=== PATIENT | male | born 1995 | race Caucasian/White ===

== ENCOUNTER 2020-11-09 08:13 | Emergency (ER) | payer OTHER ==
--- NOTE | 2020-11-09 08:21 | ED Physician Documentation ---
PD HPI HEENT - Stated complaint Stated Complaint: LUMP BY EAR - History obtained from History obtained from: Patient - History of Present Illness Timing - onset: How many days ago (2-3) Timing - duration: Days (2-3) Timing - details: Gradual onset, Still present (increasing swelling right throat and right neck. Feverish today.) Location: Throat Worsens: Swalllowing Associated symptoms: Fever (today), Swollen nodes. No: Congestion, Rhinorrhea, Headache Similar symptoms before: Has not had sx before Recently seen: Clinic (had COVID 2nd vaccine a week ago and felt okay after it. He initially thought this might be effect of the vaccine, but more pain in throat locally.) Review of Systems Constitutional: reports: Fever Nose: denies: Rhinorrhea / runny nose, Congestion, Sinus pressure / pain Throat: reports: Sore throat, Swollen tonsils Respiratory: denies: Cough GI: denies: Nausea, Vomiting, Diarrhea Skin: denies: Rash Neurologic: denies: Headache PD PAST MEDICAL HISTORY - Past Medical History Past Medical History: No - Present Medications Home Medications: Ambulatory Orders Medication Instructions Recorded Confirmed cephALEXin [Keflex] 500 mg PO QID 7 Days #28 cap 11/09/20 dexAMETHasone [Decadron] 4 mg PO DAILY #5 tablet 11/09/20 diphenhydrAMINE ELIXIR [Benadryl 12.5 mg PO Q6H PRN #120 ml 11/09/20 Elixir] - Allergies Allergies/Adverse Reactions: Allergies Allergy/AdvReac Type Severity Reaction Status Date / Time No Known Drug Allergies Allergy Verified 11/09/20 08:25 PD ED PE NORMAL - Vitals Vital signs reviewed: Yes - General General: Alert and oriented X 3, Well developed/nourished, Other (uncomfortable with swallowing. ) - HEENT HEENT: Ears normal, Moist mucous membranes. No: Pharynx benign (left tonsil is okay. Right tonsil with some swelling and exudate. The peritonsillar area has swelling with slight deviation of right tonsil to midline. No obvious bulging in the soft tissue. ) - Neck Neck: Supple, no meningeal sign, Other (Right anterior adenopathy that is tender, about 2 cm size. Not fluctuant. ) - Cardiac Cardiac: No murmur. No: RRR (febrile and mild tachycardic. Does not look septic. ) - Respiratory Respiratory: Clear bilaterally - Abdomen Abdomen: Soft, Non tender - Derm Derm: Normal color, Warm and dry, No rash - Neuro Neuro: Alert and oriented X 3, No motor deficit, Normal speech (no distortion of phonation) Results - Vitals Vitals: Vital Signs - 24 hr 11/09/20 08:18 Temperature 38 C H Heart Rate 102 H Respiratory 18 Rate Blood Pressure 138/80 H O2 Saturation 96 Oxygen O2 Source Room air PD MEDICAL DECISION MAKING - ED course Complexity details: considered differential (peritonsillar swelling without much deviation nor bulging. Does not look like it needs I&D as yet, so should be treatable with abx/steroids. Normal voice but pain with swallowing. I think would be unrelated to COIVD vaccine from last week. ), d/w patient Departure - Departure Disposition: 01 Home, Self Care Clinical Impression: Anterior cervical adenopathy, Peritonsillar abscess determined by examination Condition: Stable Record reviewed to determine appropriate education?: Yes Instructions: ED Peritonsillar Infec Abx No I andD Follow-Up: [facility] [Provider Group] Prescriptions: diphenhydrAMINE ELIXIR [Benadryl Elixir] 12.5 mg PO Q6H PRN #120 ml PRN Reason: Pain dexAMETHasone [Decadron] 4 mg PO DAILY #5 tablet cephALEXin [Keflex] 500 mg PO QID 7 Days #28 cap Comments: Stay well-hydrated. Soft food to help with discomfort. You can use Benadryl liquid swallowed to help numb the throat a little bit. Add Tylenol or ibuprofen if needed for pains. Cephalexin antibiotic 4 times a day for the next week. Decadron steroid for inflammation daily for the next 5 days. I would anticipate improvement over the next day or 2 considerably and resolution by 3 to 5 days. Recheck if not improving in that timeframe and return to the ER if worsening. At this point the infection does not look big enough to need drainage and should improve with the above medicines. However sometimes it does accumulate fluid more and needs drainage at the tonsil area.
[2020-11-09 08:25] VITALS: BP 138/80
[2020-11-09] MEDS ORDERED: diphenhydrAMINE ELIXIR 25 MG/10 ML UDC PO STA (08:40)
[2020-11-09] MEDS ORDERED: CHERRY SYRUP 10 ML UDC PO ONE (08:40)
[2020-11-09] MEDS ORDERED: DEXAMETHASONE 10 MG/ML VIAL PO STA (08:40)
[2020-11-09] MEDS ORDERED: IBUPROFEN 600 MG TABLET PO STA (08:40)
[2020-11-09] MEDS ORDERED: cephALEXin 250 MG CAPSULE PO STA (08:40)
[2020-11-09 09:29] LABS: RAPID STREP SCREEN Negative (Negative)
== END 2020-11-09 09:31 | disposition home or self-care (01) ==
LOC: ED 08:13
DX: J36 Peritonsillar abscess (principal); R59.9 Enlarged lymph nodes, unspecified
CPT/HCPCS: 87070; 87430; 99283; 99284; A9270

== ENCOUNTER 2020-11-11 20:02 | Emergency (ER) | payer OTHER ==
[2020-11-11 20:25] LABS: RAPID STREP SCREEN Negative (Negative)
[2020-11-11] MEDS ORDERED: SODIUM CHLORIDE 0.9% 1,000 ML IV STA ×2 (20:43)
[2020-11-11 20:46] LABS: BASOPHILS % (AUTO) 0.7 %; HCT - HEMATOCRIT 44.4 % (42.0-52.0); HGB - HEMOGLOBIN 14.8 g/dL (14.0-18.0); LYMPHOCYTES % (AUTO) 54.6 %; MEAN CORPUSCULAR HEMOGLOBIN 31.3 pg (27.0-31.0); MEAN CORPUSCULAR HGB CONC 33.3 g/dL (32.0-36.0); MEAN CORPUSCULAR VOLUME 93.9 fL (80.0-94.0); MEAN PLATELET VOLUME 9.4 fL (7.4-11.4); MONOCYTES % (AUTO) 17.9 %; NEUTROPHILS % (AUTO) 25.9 %; PLT - PLATELET COUNT 185 10^3/uL (130-450); RED BLOOD COUNT 4.73 10^6/uL (4.70-6.10); RED CELL DISTRIBUTION WIDTH 12.6 % (12.0-15.0)
[2020-11-11] MEDS ORDERED: AMPICILLIN/SULBACTAM 3 GM in SODIUM CHLORIDE 0.9% MINIBAG 100 ML IV STA (20:47)
[2020-11-11] MEDS ORDERED: IOVERSOL 320 100 ML VIAL IVP ONE ×2 (20:50→21:44)
[2020-11-11 20:51] LABS: SLIDE REVIEW? Indicated
[2020-11-11 20:52] LABS: ABNORMAL LYMPHS % (MANUAL) 0 %; BAND NEUTROPHILS % (MANUAL) 0 %
--- NOTE | 2020-11-11 20:52 | ED Physician Documentation ---
History of Present Illness - Stated complaint Stated Complaint: SORE THROAT - Chief complaint Chief Complaint: Heent - Additonal information Additional information: 25-year-old male presents to the emergency department for evaluation of worse alma sore throat fevers and increased pain and difficulty swallowing. Patient was seen here 2 days ago by my colleague and there were concerns for early peritonsillar abscess on the right side. He was started on cephalexin which she has filled but since discharge has had increased pain and some now mild dysphonia. He presents febrile with temperature 38 3 and tachycardic with a heart rate of 120. He is supporting his own airway and is tolerating his own secretions with an intact swallow. Review of Systems Constitutional: reports: Fever Eyes: reports: Reviewed and negative Ears: reports: Reviewed and negative Nose: reports: Reviewed and negative Throat: reports: Sore throat Cardiac: reports: Reviewed and negative Respiratory: reports: Reviewed and negative GI: reports: Reviewed and negative : reports: Reviewed and negative Skin: reports: Reviewed and negative Musculoskeletal: reports: Neck pain PD PAST MEDICAL HISTORY - Past Surgical History Past Surgical History: No - Present Medications Home Medications: Ambulatory Orders Medication Instructions Recorded Confirmed cephALEXin [Keflex] 500 mg PO QID 7 Days #28 cap 11/09/20 11/11/20 dexAMETHasone [Decadron] 4 mg PO DAILY #5 tablet 11/09/20 11/11/20 diphenhydrAMINE ELIXIR [Benadryl 12.5 mg PO Q6H PRN #120 ml 11/09/20 11/11/20 Elixir] Ibuprofen [Motrin] 600 mg PO Q6H PRN #30 tab 11/11/20 - Allergies Allergies/Adverse Reactions: Allergies Allergy/AdvReac Type Severity Reaction Status Date / Time No Known Drug Allergies Allergy Verified 11/11/20 20:05 - Social History Does the pt smoke?: No Smoking Status: Never smoker Does the pt drink ETOH?: No Does the pt have substance abuse?: No - Immunizations Immunizations are current?: Yes - POLST Patient has POLST: No PD ED PE EXPANDED - General General: Alert, In Pain - HEENT HEENT: Pharyngeal erythema, Swollen tonsils, Tonsillar exudate (4+ kissing tonsils bilaterally with copious amount of white patches and exudate bilaterally. Uvula is midline without soft palate symmetry or swelling. Generalized posterior oropharynx erythema. No trismus. Patient has an intact swallow.). No: Soft palate petecchiae - Neck Neck: Adenopathy (Large firm nonmobile greater than 2 cm right submandibular lymph node. Mild swelling noted at the angle of the jaw and right neck. Full range of motion of neck in all planes.) - Cardiac Cardiac: Regular Rate, Radial strong equal, Pedal strong equal, Cap refill < 2 sec. No: Murmur Present - Respiratory Respiratory: Clear to ausultation deloris. No: Distress, Labored - Abdomen Abdomen: Normal Bowel sounds. No: Tender to palpation - Neuro Neuro: Alert and Oriented X 3, CNII-XII intact - GCS Eye Opening: Spontaneous Motor: Obeys Commands Verbal: Oriented Total: 15 Results - Vitals Vitals: Vital Signs - 24 hr 11/11/20 11/11/20 11/11/20 20:06 20:09 20:39 Temperature 38.3 C H 38.3 C H Heart Rate 115 H 111 H 111 H Respiratory 18 14 15 Rate Blood Pressure 148/83 H 126/94 H 125/92 H O2 Saturation 96 97 98 11/11/20 11/11/20 21:09 22:00 Temperature 36.8 C Heart Rate 110 H 122 H Respiratory 16 17 Rate Blood Pressure 126/88 H 149/83 H O2 Saturation 99 97 Oxygen O2 Source Room air - Labs Labs: Laboratory Tests 11/11/20 11/11/20 11/11/20 20:11 20:30 20:30 WBC 25.0 H RBC 4.73 Hgb 14.8 Hct 44.4 MCV 93.9 MCH 31.3 H MCHC 33.3 RDW 12.6 Plt Count 185 MPV 9.4 Neut # (Auto) Not Reportable Lymph # (Auto) Not Reportable [place] # (Auto) Not Reportable Eos # (Auto) Not Reportable Baso # (Auto) Not Reportable Absolute Nucleated RBC Not Reportable Total Counted 100 Band Neuts % (Manual) 0 Reactive Lymphs % (Man) 28 Abnorm Lymph % (Manual) 0 Nucleated RBC % Not Reportable Neutrophils # (Manual) 7.8 H Lymphocytes # (Manual) 12.8 H Monocytes # (Manual) 4.5 H Eosinophils # (Manual) 0.0 Basophils # (Manual) 0.0 Differential Comment MANUAL DIFFERENTIAL Manual Slide Review Indicated Platelet Estimate NORMAL (130-450,000) RBC Morph Micro Appear NORMAL APPEARANCE Sodium 135 Potassium 4.0 Chloride 100 L Carbon Dioxide 24 Anion Gap 11.0 BUN 13 Creatinine 0.8 Estimated GFR (MDRD) 118 Glucose 113 H Lactic Acid Calcium 9.3 Total Bilirubin 1.1 H AST 95 H ALT 233 H Alkaline Phosphatase 156 H Total Protein 9.1 H Albumin 4.4 Globulin 4.7 H Albumin/Globulin Ratio 0.9 L Infectious [place] Assay Group A Strep Rapid Negative 11/11/20 11/11/20 20:30 20:30 WBC RBC Hgb Hct MCV MCH MCHC RDW Plt Count MPV Neut # (Auto) Lymph # (Auto) [place] # (Auto) Eos # (Auto) Baso # (Auto) Absolute Nucleated RBC Total Counted Band Neuts % (Manual) Reactive Lymphs % (Man) Abnorm Lymph % (Manual) Nucleated RBC % Neutrophils # (Manual) Lymphocytes # (Manual) Monocytes # (Manual) Eosinophils # (Manual) Basophils # (Manual) Differential Comment Manual Slide Review Platelet Estimate RBC Morph Micro Appear Sodium Potassium Chloride Carbon Dioxide Anion Gap BUN Creatinine Estimated GFR (MDRD) Glucose Lactic Acid 1.5 Calcium Total Bilirubin AST ALT Alkaline Phosphatase Total Protein Albumin Globulin Albumin/Globulin Ratio Infectious [place] Assay POSITIVE A Group A Strep Rapid - Rads (name of study) Soft tissue neck Radiology: Final report received (Bilateral enlargement of the adenoids and tonsils without discrete associated abscess. Bilateral markedly enlarged cervical lymph nodes. The findings are likely reactive secondary to an infectious or inflammatory process) PD MEDICAL DECISION MAKING - ED course Complexity details: reviewed results, re-evaluated patient, d/w patient ED course: 25-year-old male presents to the emergency department after being seen 2 days ago for worsening sore throat. On exam he has markedly enlarged lymph nodes on the right side of his neck as well as excessive amount of tonsillar exudate swelling and erythema. His rapid strep remains negative but his mononucleosis is positive. He is supporting his own airway with normal phonation and no trismus. Full range of motion of the neck. A CT soft tissue of the neck was completed and it does not show any discrete abscess. His labs do show a markedly elevated white blood cell count which we would expect and mononucleosis as well as transaminases are also consistent with mono. He had a nontender abdominal exam without jaundice. CT imaging of the abdomen pelvis was deferred. This gentleman was given 2 L of IV fluids here in the emergency department. He has not been hypotensive. He felt marked improvement in his symptoms following ibuprofen. He is also drinking clear liquids and water well. Findings and CT results were discussed with the patient. He is recommended to stay in quarantine until cleared by [facility]. He is to avoid all contact sports. He is advised to have his labs repeated in about 1 week to show improvement in transaminase and leukocytosis. Emergent return precautions were discussed for airway concerns, inability to cough, swallow or turn his neck. Departure - Departure Disposition: 01 Home, Self Care Clinical Impression: Mononucleosis, infectious, with hepatitis, Pharyngitis due to infectious mononucleosis Leukocytosis Qualifiers: Leukocytosis type: unspecified Qualified Code(s): D72.829 - Elevated white blood cell count, unspecified Condition: Stable Record reviewed to determine appropriate education?: Yes Instructions: Mononucleosis, Mononucleosis Blood Prescriptions: Ibuprofen [Motrin] 600 mg PO Q6H PRN #30 tab PRN Reason: Pain Comments: Eleazar you are seen in the emergency department today for a severe sore throat. Your labs today show that you do have infectious mononucleosis. This is typically caused by the Swati-Gardner virus. It causes severe sore throat swollen lymph nodes but it can also cause inflammation in the liver which is called hepatitis. You do have findings on your labs of acute hepatitis. Unfortunately there is no treatment for mononucleosis. It simply gets better with time. You should avoid any work-related activities for a minimum of 3 to 6 weeks. You need to also avoid any contact sports such as football soccer or basketball until you are cleared by your primary doctor. It is important that you follow-up with [facility] tomorrow. It is important that you drink lots of fluids and water. Eating hard foods may be difficult right now so soft foods like ice cream or smoothies will be helpful. I have prescribed ibuprofen for you to take 3-4 times a day to help with sore throat and discomfort. Return to the emergency department if your symptoms are worsening, you have fevers cannot turn your neck or swallow or tolerate your oral secretions.
[2020-11-11 20:56] LABS: ALBUMIN 4.4 g/dL (3.2-5.5); ALBUMIN/GLOBULIN RATIO 0.9 (1.0-2.2); BILIRUBIN,TOTAL 1.1 mg/dL (0.2-1.0); CALCIUM 9.3 mg/dL (8.5-10.3); CREATININE 0.8 mg/dL (0.6-1.2); TOTAL PROTEIN 9.1 g/dL (6.7-8.2)
[2020-11-11 21:08] LABS: INFECTIOUS MONONUCLEOSIS POSITIVE (Negative)
[2020-11-11 21:31] LABS: LYMPHOCYTES # (MANUAL) 12.8 10^3/uL (1.5-3.5); LYMPHOCYTES % (MANUAL) 23 %; MONOCYTES # (MANUAL) 4.5 10^3/uL (0.0-1.0); NEUTROPHILS # (MANUAL) 7.8 10^3/uL (1.5-6.6); PLATELET ESTIMATE, MANUAL NORMAL (130-450,000) (NORMAL); RBC MORPHOLOGY (MULTIPLE) NORMAL APPEARANCE (NORMAL); REACTIVE LYMPHS % (MANUAL) 28 %
[2020-11-11 21:32] LABS: DIFFERENTIAL COMMENT MANUAL DIFFERENTIAL
--- NOTE | 2020-11-11 22:05 | CT Report ---
PROCEDURE: SOFT TISSUE NECK W INDICATIONS: sore throat. ? RPA or MANUFACTURER'S SERVICE REPRESENTATIVE CONTRAST: IV CONTRAST: Optiray 320 ml: 100 PO CONTRAST: *NO PO CONTRAST TECHNIQUE: After the administration of intravenous contrast, 3.0 mm axial sections acquired from the sella to th e aortic arch. Additional oblique axial 3.0 mm sections acquired through the pharynx. 3 mm thick co hiwot reformats were generated. For radiation dose reduction, the following was used: automated exp osure control, adjustment of mA and/or kV according to patient size. COMPARISON: None. FINDINGS: Image quality: Excellent. Lymph nodes: There are bilateral enlarged cervical lymph nodes. These include a hostess party sales representative right level 2 node measuring up to 2.3 cm in short axis on series 5 image 75. A hostess party sales representative left level 3 node measures up to 1.8 cm in short axis on series 5 image 78. Enlarged level 4 and 5 nodes are also demonstrated bilaterally as well as prominent subcentimeter supraclavicular lymph nodes. Prominent s ubcentimeter level 1 lymph nodes are also noted bilaterally. Vessels: Visualized vasculature appears patent. Neck spaces: There is enlargement of the adenoids and tonsils bilaterally. No discrete associated fl uid collections to suggest an abscess. The oropharynx, nasopharynx, and pharynx demonstrate no mucosa l mass lesions. The vocal cords, false vocal cords, pyriform sinuses, epiglottis, vallecula, and ton heather base appear within normal limits. No prevertebral abscess collection. Glands: The parotid and submandibular glands appear normal. The thyroid demonstrates no discrete no dules. Miscellaneous: Visualized brain and orbits appear normal. Lung apices appear clear. Superficial so ft tissues appear normal. Bones: No suspicious bony lesions. Visualized sinuses and mastoids appear unremarkable. IMPRESSION: 1. Bilateral enlargement of the adenoids and tonsils without discrete associated abscess. 2. Bilateral markedly enlarged cervical lymph nodes. The findings are likely reactive secondary to an infectious or inflammatory process, but clinical follow-up is recommended to demonstrate resolution as the differential includes lymphoma and metastatic disease. Reviewed by: Baljeet Camp MD on 11/11/2020 10:04 PM PDT Approved by: Baljeet Camp MD on 11/11/2020 10:04 PM PDT Station ID: [id number]
[2020-11-11] MEDS ORDERED: IBUPROFEN 100 MG/5 ML UDC PO STA (22:20)
[2020-11-11 23:29] VITALS: BP 138/79
== END 2020-11-11 23:28 | disposition home or self-care (01) ==
LOC: ED 20:02
DX: B27.99 Infectious mononucleosis, unspecified with other complication (principal)
CPT/HCPCS: 36415; 70491; 80053; 83605; 85025; 86308; 87040; 87070; 87430; 96365; 99284; A9270; Q9967

== ENCOUNTER 2020-11-12 06:31 | Outpatient (CLI) | payer OTHER | END 2020-11-12 06:32 | disposition EMS.NT | LOC: EMS 06:31 | DX: R22.1 Localized swelling, mass and lump, neck (principal) ==

== ENCOUNTER 2020-11-12 09:36 | Emergency (ER) | payer OTHER ==
[2020-11-12] MEDS ORDERED: DEXAMETHASONE 10 MG/ML VIAL IV STA (09:44)
[2020-11-12] MEDS ORDERED: ACETAMINOPHEN 160 MG/5 ML SUSP UDC PO STA (09:44)
[2020-11-12] MEDS ORDERED: HYDROmorphone 1 MG/ML CARPUJECT IVP STA (09:44)
[2020-11-12] MEDS ORDERED: KETOROLAC 30 MG/ML VIAL IVP STA (09:44)
[2020-11-12 10:13] LABS: BASOPHILS % (AUTO) 0.6 %; HCT - HEMATOCRIT 40.1 % (42.0-52.0); HGB - HEMOGLOBIN 13.3 g/dL (14.0-18.0); LYMPHOCYTES % (AUTO) 46.2 %; MEAN CORPUSCULAR HEMOGLOBIN 31.1 pg (27.0-31.0); MEAN CORPUSCULAR HGB CONC 33.2 g/dL (32.0-36.0); MEAN CORPUSCULAR VOLUME 93.7 fL (80.0-94.0); MEAN PLATELET VOLUME 9.3 fL (7.4-11.4); MONOCYTES % (AUTO) 16.5 %; NEUTROPHILS % (AUTO) 35.8 %; PLT - PLATELET COUNT 173 10^3/uL (130-450); RED BLOOD COUNT 4.28 10^6/uL (4.70-6.10); RED CELL DISTRIBUTION WIDTH 12.7 % (12.0-15.0); WHITE BLOOD COUNT 20.9 x10^3/uL (4.8-10.8)
[2020-11-12 10:17] LABS: ABNORMAL LYMPHS % (MANUAL) 0 %
[2020-11-12 10:25] LABS: ALBUMIN 3.9 g/dL (3.2-5.5); ALBUMIN/GLOBULIN RATIO 0.8 (1.0-2.2); CALCIUM 8.4 mg/dL (8.5-10.3); POTASSIUM 3.9 mmol/L (3.5-5.0); TOTAL PROTEIN 8.5 g/dL (6.7-8.2)
[2020-11-12 10:40] LABS: BAND NEUTROPHILS % (MANUAL) 2 %; LYMPHOCYTES # (MANUAL) 10.9 10^3/uL (1.5-3.5); LYMPHOCYTES % (MANUAL) 30 %; MONOCYTES # (MANUAL) 1.5 10^3/uL (0.0-1.0); NEUTROPHILS # (MANUAL) 8.6 10^3/uL (1.5-6.6); REACTIVE LYMPHS % (MANUAL) 22 %
[2020-11-12 10:41] LABS: DIFFERENTIAL COMMENT MANUAL DIFFERENTIAL; PLATELET ESTIMATE, MANUAL NORMAL (130-450,000) (NORMAL); PLATELET MORPHOLOGY NORMAL APPEARANCE (NORMAL); RBC MORPHOLOGY (MULTIPLE) NORMAL APPEARANCE (NORMAL); WBC MORPHOLOGY (MULTIPLE) 3+ REACTIVE LYMPHS (NORMAL)
--- NOTE | 2020-11-12 10:58 | XRAY Report ---
PROCEDURE: Neck Soft Tissue INDICATIONS: swelling in throat TECHNIQUE: 2 views of the neck were acquired. COMPARISON: None FINDINGS: Airway: The airway appears patent. Soft tissues: Prevertebral soft tissues are normal in thickness. Epiglottis not well visualized. It is possibly edematous. No soft tissue gas. Bones: No suspicious bony lesions. Visualized cervical spine is normally aligned. IMPRESSION: Epiglottis not well visualized. It is possibly edematous. This study does not exclude epiglottitis. Above discussed with LUIS EDUARDO BERG at the time of dictation on 11/12/2020 at 1045 hours Reviewed by: Joselito Hill MD on 11/12/2020 10:57 AM PDT Approved by: Joselito Hill MD on 11/12/2020 10:57 AM PDT Station ID: [id number]
--- NOTE | 2020-11-12 11:29 | ED Physician Documentation ---
PD HPI HEENT - Stated complaint Stated Complaint: SOA - Chief complaint Chief Complaint: Heent - History obtained from History obtained from: Patient - Additional information Additional information: Pt comes to the ED for CC throat pain and swelling. Pt was initially diagnosed with tonsillitis and started on Keflex a few days ago, then seen yesterday for worsening sx and dx with mono. CT showed LAD, but no abscess. Pt has been on low-dose Decadron and ibuprofen for symptomatic control, and states he is miserable and feels like the enlargement of his tonsils/lymph nodes and the mucus production are making it hard to breathe. Review of Systems Ten Systems: 10 systems reviewed and negative Constitutional: reports: Reviewed and negative Eyes: reports: Reviewed and negative Ears: reports: Reviewed and negative Nose: reports: Reviewed and negative Throat: reports: Sore throat, Swollen tonsils Cardiac: reports: Reviewed and negative Respiratory: reports: Reviewed and negative GI: reports: Reviewed and negative : reports: Reviewed and negative Skin: reports: Reviewed and negative Musculoskeletal: reports: Reviewed and negative Neurologic: reports: Reviewed and negative Psychiatric: reports: Reviewed and negative Endocrine: reports: Reviewed and negative Immunocompromised: reports: Reviewed and negative PD PAST MEDICAL HISTORY - Past Surgical History Past Surgical History: No - Present Medications Home Medications: Ambulatory Orders Medication Instructions Recorded Confirmed cephALEXin [Keflex] 500 mg PO QID 7 Days #28 cap 11/09/20 11/11/20 dexAMETHasone [Decadron] 4 mg PO DAILY #5 tablet 11/09/20 11/11/20 diphenhydrAMINE ELIXIR [Benadryl 12.5 mg PO Q6H PRN #120 ml 11/09/20 11/11/20 Elixir] Ibuprofen [Motrin] 600 mg PO Q6H PRN #30 tab 11/11/20 HYDROcodone/ACET 7.5/325 EDDIE 15 ml PO Q6HR PRN #300 ml 11/12/20 [Lortab 7.5/325 Eddie] predniSONE [Deltasone] 60 mg PO DAILY 5 Days #15 tablet 11/12/20 - Allergies Allergies/Adverse Reactions: Allergies Allergy/AdvReac Type Severity Reaction Status Date / Time No Known Drug Allergies Allergy Verified 11/12/20 09:50 - Social History Does the pt smoke?: No Smoking Status: Never smoker Does the pt drink ETOH?: No Does the pt have substance abuse?: No - Immunizations Immunizations are current?: Yes - POLST Patient has POLST: No PD ED PE NORMAL - Vitals Vital signs reviewed: Yes - General General: Alert and oriented X 3, Other (Pt appears miserable and uncomfortable. He is leaning forward, mouth breathing.) - HEENT HEENT: Atraumatic, PERRL, EOMI, Moist mucous membranes, Other (4+ tonsils, beefy red, with exudates.) - Neck Neck: Supple, no meningeal sign, Other (Marked bilateral cervical LAD.) - Cardiac Cardiac: RRR, No murmur, Strong equal pulses - Respiratory Respiratory: No respiratory distress (PT is breathing normally and speaks in full sentences.), Clear bilaterally - Abdomen Abdomen: Soft, Non tender, Non distended, No organomegaly - Derm Derm: Normal color, Warm and dry, No rash - Extremities Extremities: No deformity - Neuro Neuro: Alert and oriented X 3 - Psych Psych: Normal mood, Normal affect Results - Vitals Vitals: Vital Signs - 24 hr 11/12/20 11/12/20 11/12/20 09:40 10:24 11:00 Temperature 38.6 C H Heart Rate 140 H 109 H 98 Respiratory 28 H 10 L 20 Rate Blood Pressure 113/75 140/84 H 119/75 O2 Saturation 98 95 96 11/12/20 11:30 Temperature 37.3 C Heart Rate 98 Respiratory 18 Rate Blood Pressure 116/70 O2 Saturation 99 Oxygen O2 Source Room air - Labs Labs: Laboratory Tests 11/12/20 11/12/20 10:08 10:08 WBC 20.9 H RBC 4.28 L Hgb 13.3 L Hct 40.1 L MCV 93.7 MCH 31.1 H MCHC 33.2 RDW 12.7 Plt Count 173 MPV 9.3 Neut # (Auto) Not Reportable Lymph # (Auto) Not Reportable [place] # (Auto) Not Reportable Eos # (Auto) Not Reportable Baso # (Auto) Not Reportable Absolute Nucleated RBC Not Reportable Total Counted 100 Band Neuts % (Manual) 2 Reactive Lymphs % (Man) 22 Abnorm Lymph % (Manual) 0 Nucleated RBC % Not Reportable Neutrophils # (Manual) 8.6 H Lymphocytes # (Manual) 10.9 H Monocytes # (Manual) 1.5 H Eosinophils # (Manual) 0.0 Basophils # (Manual) 0.0 Differential Comment MANUAL DIFFERENTIAL WBC Morphology 3+ REACTIVE LYMPHS Platelet Estimate NORMAL (130-450,000) Platelet Morphology NORMAL APPEARANCE RBC Morph Micro Appear NORMAL APPEARANCE Sodium 132 L Potassium 3.9 Chloride 97 L Carbon Dioxide 23 Anion Gap 12.0 BUN 11 Creatinine 1.0 Estimated GFR (MDRD) 91 Glucose 108 H Calcium 8.4 L Total Bilirubin 1.0 AST 73 H ALT 189 H Alkaline Phosphatase 134 H Total Protein 8.5 H Albumin 3.9 Globulin 4.6 H Albumin/Globulin Ratio 0.8 L PD MEDICAL DECISION MAKING - ED course Complexity details: reviewed old records, reviewed results, re-evaluated patient, considered differential, d/w patient, d/w network security consultant (Dr. Vera, ENT, [place]) ED course: Pt was treated with IV fluids, Decadron, Toradol, Tylenol, and Dilaudid, with marked improvement in condition, and pt stating he felt better enough that he could imagine eating food. CT was down for maintenance for several hours mascorro rrounding pt's visit, and though I contemplated repeating CT, the degree of improvement with symptomatic treatment was reassuring. ST neck XR was difficult to interpret, per radiologist. I discussed the case with Dr. Papa Vera of ENT, who felt that pt could be treated as an outpatient with tighter symptom control. He recommended prednisone 60 mg and continuance of Keflex. ENT f/u prn, but not felt necessary at this time. I have discussed all of this with the pt, who is agreeable. I will also add Lortab elixir to his regimen. We have discussed fever control, as well, to help with general discomfort. We have discussed the usual indications for return. Departure - Departure Disposition: 01 Home, Self Care Clinical Impression: Infectious mononucleosis Qualifiers: Infectious mononucleosis etiology: unspecified organism Infectious mononucleosis complication: without complication Qualified Code(s): B27.90 - Infectious mononucleosis, unspecified without complication Condition: Stable Instructions: ED Mononucleosis Prescriptions: HYDROcodone/ACET 7.5/325 EDDIE [Lortab 7.5/325 Eddie] 15 ml PO Q6HR PRN #300 ml PRN Reason: Pain predniSONE [Deltasone] 60 mg PO DAILY 5 Days #15 tablet Comments: The improvement you have had with the medications today is encouraging. Your case has been discussed with Dr. Papa Vera, the ear nose throat specialist in [place]. He has recommended higher dose steroid, as well as some stronger pain control for you, but would like you to continue also taking the ibuprofen and the antibiotic that you are on. There is no evidence of a pus pocket in your throat or neck at this time. Unfortunately, mono is a miserable and uncomfortable illness and just takes time to go away. Please drink plenty of fluids. You may eat a soft diet as you can tolerate. You will need to be off work until your fever is completely gone and you are feeling better. You may follow-up with your primary doctor or the ear nose throat specialist if needed. If you begin to have any trouble whatsoever with breathing, please return to the emergency department immediately Discharge Date/Time: 11/12/20 11:55
[2020-11-12 11:40] VITALS: BP 116/70
== END 2020-11-12 11:55 | disposition home or self-care (01) ==
LOC: EDUNIT# → ED 09:36
DX: B27.90 Infectious mononucleosis, unspecified without complication (principal); J03.90 Acute tonsillitis, unspecified
CPT/HCPCS: 36415; 70360; 80053; 85025; 96374; 96375; 99284; 99285; J1170